=== PATIENT | female | born 1975 | race Caucasian/White ===

== ENCOUNTER → 2018-06-30 | Outpatient (CLI) | payer OTHER ==
[~2018-06-30] VITALS: Ht 172.7 cm; Wt 79.4 kg
[~2018-06-30] MED LIST: LIDOCAINE 1% INJ 20 ML 20 ML VIAL INJ ONE
--- NOTE | 2018-06-30 12:19 | Diagnostic Imaging Report ---
INDICATION: Right breast nodule. Patient presents for ultrasound-guided biopsy. EXAM: Ultrasound imaging of the right breast was performed to evaluate appropriate entry site. FINDINGS: The skin of the right breast was then prepped and draped in the usual sterile fashion. A small amount of 1% lidocaine was utilized for local anesthesia. A 14-gauge Achieve core biopsy needle was utilized to biopsy of the circumscribed hypoechoic nodule at the 3 o'clock location of the right breast, 1 cm from the nipple. A total of 3 passes were made. A marker clip was then deployed. Hemostasis was obtained using manual compression. IMPRESSION: Successful ultrasound guided core biopsy of the circumscribed hypoechoic nodule at the 3 o'clock location of the right breast, 1 cm from the nipple. Pathology results are currently pending. Dictated by: Dictated on workstation # [id number]
--- NOTE | 2018-06-30 19:12 | Diagnostic Imaging Report ---
INDICATION: Right breast nodule, status post ultrasound-guided biopsy. EXAMINATION: 2D, CC and ML mammography was performed. FINDINGS: There is a marker clip in the medial right breast retroareolar region adjacent to the previously noted nodule. Right breast is heterogeneously dense. IMPRESSION: Marker clip is located in the retroareolar right breast medially adjacent to the biopsied nodule. Dictated by: Dictated on workstation # [id number]
== END ==
LOC: RAD 07:50
PROVIDERS: ATTEND Surgery
DX: D24.1 Benign neoplasm of right breast (principal)
CPT/HCPCS: 19083; 88305